=== PATIENT | male | born 1995 | race Caucasian/White ===

== ENCOUNTER 2018-05-30 19:33 | Emergency (ER) | payer OTHER ==
[~2018-05-30] VITALS: Ht 167.6 cm; Wt 77.3 kg
[2018-05-30] MEDS ORDERED: IBUP80TA PO (20:49)
[2018-05-30] MEDS ORDERED: CYCL10TA PO (20:49)
[2018-05-30 21:00] VITALS: BP 124/73
[2018-05-30] MEDS ORDERED: CYCLOBENZAPRINE 10 MG TAB PO ONE (21:00)
[2018-05-30] MEDS ORDERED: IBUPROFEN 800 MG TAB PO ONE (21:00)
== END 2018-05-30 21:02 | disposition home or self-care (01) ==
LOC: M ED 19:33
DX: M62.830 Muscle spasm of back (principal)